=== PATIENT | female | born 1950 | race Caucasian/White ===

== ENCOUNTER 2021-08-23 15:54 | Emergency (ER) | payer OTHER ==
[~2021-08-23] VITALS: Ht 162.6 cm; Wt 107.0 kg
[2021-08-23 16:34] LABS: HEMATOCRIT 41.1 % (37.0-47.0); HEMOGLOBIN 13.3 gm/dL (12.0-15.0); MCH 22.6 pg (26.0-34.0); MCHC 32.3 g/dL (28.0-37.0); MCV 69.9 fL (80.0-100.0); MPV 7.1 fl. (7.2-11.1); NUCLEATED RBCS 0 /100WBC; PLATELET COUNT* 377 thou/uL (150-400); RBC 5.88 mil/uL (4.20-5.00); RDW-CV 16.5 % (10.5-14.5); WBC 15.6 thou/uL (4.0-11.0)
[2021-08-23 16:43] LABS: CALCIUM 9.9 mg/dL (8.5-10.1); POTASSIUM 3.4 mmol/L (3.5-5.1)
[2021-08-23 16:48] LABS: ALBUMIN 4.1 g/dL (3.4-5.0); TOTAL BILIRUBIN 0.8 mg/dL (<0.1-1.0); TOTAL PROTEIN 7.9 g/dL (6.4-8.2)
[2021-08-23 17:05] LABS: ABSOLUTE LYMPHOCYTES 1.6 thou/uL (0.8-5.3); ABSOLUTE MONOCYTES 0.8 thou/uL (0.0-1.2); ABSOLUTE NEUTROPHILS 13.3 thou/uL (1.6-8.1)
[2021-08-23 17:06] LABS: PLATELET ESTIMATE ADEQUATE
[2021-08-23 17:07] LABS: ANISOCYTOSIS 1+; MICROCYTES 2+
[2021-08-23 17:36] LABS: URINE BILIRUBIN NEGATIVE (Negative); URINE BLOOD NEGATIVE (Negative); URINE CLARITY CLEAR; URINE COLOR YELLOW; URINE GLUCOSE-RANDOM NEGATIVE (Negative); URINE KETONES 1+ (Negative); URINE LEUKOCYTES NEGATIVE (Negative); URINE NITRITE NEGATIVE (Negative); URINE PROTEIN NEGATIVE (Negative); URINE SPECIFIC GRAVITY >= 1.030 (1.005-1.030); URINE UROBILINOGEN 0.2 E.U./dl (0.2-1.0)
[2021-08-23 18:45] VITALS: BP 154/78
== END 2021-08-23 18:45 | disposition home or self-care (01) ==
LOC: M.ERS 15:54
PROVIDERS: Physician Assistant
DX: K11.20 Sialoadenitis, unspecified (principal); H92.02 Otalgia, left ear